=== PATIENT | female | born 1945 | race Caucasian/White ===

== ENCOUNTER 2021-09-14 08:49 | Emergency (ER) | payer MEDICARE, OTHER ==
[~2021-09-14 08:49] MED LIST: CELEXA10 MG PO; CERTAGEN1 EACH PO; FEOSOL325 MG PO; LOPRESSOR25 MG PO; OXY-IR 5MG5 MG PO; PRILOSEC20 MG PO; SENOKOT-S TABL1 EACH PO; XARELTO10 MG PO
[2021-09-14 09:08] LABS: BASOPHIL 0.4 % (0-2); EOSINOPHIL 0.7 % (0-7); HCT 34.5 % (37.0-47.0); HGB 11.6 g/dl (12.5-16.0); LYMPHOCYTE 12.3 % (15-48); MCH 31.3 pg (25.0-31.0); MCHC 33.6 g/dL (32.0-36.0); MONOCYTE 5.7 % (0-12); MPV 11.5 fL (6.0-9.5); NEUTROPHIL 79.9 % (41-80); NRBC 0; PLT 153 K/uL (150-400); RBC 3.71 M/uL (4.20-5.40); RDW 13.1 % (11.5-14.0); WBC 9.1 K/uL (4.0-10.5)
[2021-09-14 09:28] LABS: BUN/CREAT RATIO (CALC) 23.2 RATIO; CREATININE 0.69 mg/dL (0.51-0.95); POTASSIUM 3.7 mmol/L (3.5-5.1)
[2021-09-14] MEDS ORDERED: NORCO 5-325 TA1 EACH PO (12:38)
[2021-09-16] MEDS ORDERED: ADVIL200 M1 PO (12:51)
== END 2021-09-14 13:04 | disposition home or self-care (01) ==
LOC: FER 08:49
PROVIDERS: Emergency Medicine
DX: M97.01XA Periprosthetic fracture around internal prosthetic right hip joint, initial encounter (principal); S51.011A Laceration without foreign body of right elbow, initial encounter; S00.431A Contusion of right ear, initial encounter; I10 Essential (primary) hypertension; W01.0XXA Fall on same level from slipping, tripping and stumbling without subsequent striking against object, initial encounter; Y92.008 Other place in unspecified non-institutional (private) residence as the place of occurrence of the external cause
CPT/HCPCS: 36415; 70450; 71045; 72192; 73502; 80048; 85025; J1170; J2270; J2405